=== PATIENT | male | born 1970 | race Caucasian/White ===

== ENCOUNTER → 2021-01-04 08:32 | Outpatient (CLI) | payer OTHER, SELFPAY | PROVIDERS: Referring Provider Nurse Practitioner Family; Visit Provider Nurse Practitioner Family | DX: Z00.8 Encounter for other general examination (principal); Z79.899 Other long term (current) drug therapy | CPT/HCPCS: 93005 ==

== ENCOUNTER → 2023-01-01 13:12 | Outpatient (CLI) | payer OTHER, SELFPAY | PROVIDERS: PCP Internal Medicine; Referring Provider Internal Medicine; Visit Provider Surgery | DX: L59.8 Other specified disorders of the skin and subcutaneous tissue related to radiation (principal); S31.104A Unspecified open wound of abdominal wall, left lower quadrant without penetration into peritoneal cavity, initial encounter; K94.00 Colostomy complication, unspecified; C18.9 Malignant neoplasm of colon, unspecified | CPT/HCPCS: 99203; 99213 ==

== ENCOUNTER → 2023-01-14 13:20 | Outpatient (CLI) | payer OTHER, SELFPAY | PROVIDERS: PCP Internal Medicine; Referring Provider Internal Medicine; Visit Provider Surgery | DX: S31.104A Unspecified open wound of abdominal wall, left lower quadrant without penetration into peritoneal cavity, initial encounter (principal) | CPT/HCPCS: 99213 ==

== ENCOUNTER → 2023-01-28 09:18 | Outpatient (CLI) | payer OTHER, SELFPAY | PROVIDERS: PCP Internal Medicine; Referring Provider Internal Medicine; Visit Provider Nurse Practitioner Family | DX: Z93.8 Other artificial opening status (principal) | CPT/HCPCS: 99212 ==